=== PATIENT | male | born 1985 | race Asian ===

== ENCOUNTER 2018-10-02 15:13 | Emergency (ER) | payer OTHER, SELFPAY ==
[2018-10-02 15:28] VITALS: BP 138/93; PULSE 75; RESP 20; TEMP 36.6; O2SAT 99; BMI 26.9
--- NOTE | 2018-10-02 15:35 | DI.CT.S_ITS ---
PROCEDURE: CT HEAD/BRAIN WO CON INDICATIONS: headache after heavy lifting TECHNIQUE: Noncontrast 4.5 mm thick angled axial sections acquired from the foramen magnum to the vertex, with coronal and sagittal reformats. For radiation dose reduction, the following was used: automated exposure control, adjustment of mA and/or kV according to patient size. COMPARISON: None. FINDINGS: Image quality: Excellent. CSF spaces: Basal cisterns are patent. No extra-axial fluid collections. Ventricles are normal in size and shape. Brain: No midline shift. No intracranial masses or hemorrhage. Humphries-white matter interface is normal. Skull and face: Calvarium and visualized facial bones are intact, without suspicious lesions. Sinuses: Visualized sinuses and mastoids are clear. IMPRESSION: Normal examination. Source of current symptoms is not seen. Dictated by: Faustino Solano M.D. on 10/02/2018 at 15:50 Approved by: Faustino Solano M.D. on 10/02/2018 at 15:50
--- NOTE | 2018-10-02 18:35 | PC.NURSE ---
Called to come back to room. Poss left as was seen by security and coming into ED while door was open
--- NOTE | 2018-10-02 19:12 | ED_ITS ---
HPI - Headache General Chief Complaint: Headache Stated Complaint: back of head hurts, headache Time Seen by Provider: 10/02/18 18:38 Source: patient and family Mode of arrival: ambulatory Limitations: no limitations History of Present Illness HPI Narrative: 33-year-old male, nonsmoker, otherwise healthy presents with significant other and a chief complaint of gradually improving headache over the past 2 weeks. His pain started while due an incline bench press 2 weeks ago and at that time was sudden in onset. He denies any other neurologic symptoms such as blurred vision, trouble with speech or focal findings. He denies any provocation or palliation of his pain but states that over the past 2 weeks it has greatly improved. It is still slightly present but not overbearing. He presented to the walk-in clinic and was sent here for further evaluation. He denies use of blood thinners, alcohol or street drugs MD Complaint: headache Onset (ago): week(s) Onset description: sudden Location: occipital Severity: moderate Quality: aching and throbbing Relieving factors: nothing Exacerbating factors: none Context: occurred with exertion/activity Treatments prior to arrival: none Related Data Previous Rx's Medication Instructions Recorded ketorolac 10 mg PO Q6H PRN #14 tab 10/02/18 Review of Systems Review of Systems All systems reviewed & are unremarkable except as noted in HPI and below Constitutional Denies chills, Denies fever(s), Reports headache(s), Denies lethargy and Denies weakness Eyes Denies change in vision, Denies eye discharge, Denies irritation and Denies loss of vision ENT Ears, Nose, Mouth, and Throat: Denies change in voice, Reports headache(s), Denies neck pain and Denies sore throat Cardiovascular Denies chest pain, Denies irregular heart rhythm, Denies lightheadedness, Denies palpitations, Denies dyspnea, Denies dyspnea on exertion and Denies orthopnea Respiratory Denies cough, Denies dyspnea, Denies dyspnea on exertion and Denies wheezing Gastrointestinal Gastrointestinal: Denies abdominal pain, Denies change in bowel habits, Denies diarrhea, Denies nausea and Denies vomiting Genitourinary Denies hematuria, Denies flank pain, Denies urinary incontinence and Denies urinary urgency Musculoskeletal Denies neck pain Integumentary/Breasts Denies pruritus, Denies erythema, Denies rash and Denies wounds Neurologic Denies confusion, Reports headache(s), Denies loss of vision and Denies weakness Psychiatric Denies anxiety, Denies confusion, Denies depression, Denies homicidal ideation and Denies suicidal ideation Endocrine Denies palpitations Hematologic/Lymphatic Denies easy bruising Allergic/Immunologic Denies wheezing [facility] Social History Smoking Status: Never smoker Exam Narrative Exam Narrative: GENERAL: This is a well-nourished, well-developed patient, in mild distress. HEAD: Atraumatic. Normocephalic. No temporal or scalp tenderness. EYES: Pupils equal round and reactive. Extraocular motions intact. No scleral icterus. No injection or drainage. ENT: Nose without bleeding, purulent drainage or septal hematoma. Throat without erythema, tonsillar hypertrophy or exudate. Uvula midline. Airway patent. NECK: Trachea midline. No JVD or lymphadenopathy. Supple, nontender, no meningeal signs. CARDIOVASCULAR: Regular rate and rhythm without murmurs, gallops, or rubs. RESPIRATORY: Clear to auscultation. Breath sounds equal bilaterally. No wheezes , rales, or rhonchi. GASTROINTESTINAL: Abdomen soft, non-tender, nondistended. No hepato-splenomegaly , or palpable masses. No guarding. EXTREMITIES: No clubbing, cyanosis, or edema. No joint tenderness, effusion, or edema noted. BACK: Nontender without deformity or crepitance. No flank tenderness. NEURO: AOx3. SKIN: No rash or erythema. NIH Stroke Scale 1a. LOC: Patient is alert and keenly responsive (0) 1b. LOC Questions: Patient answers both LOC questions accurately (0) 1c. LOC Commands: Patient performs both tasks correctly (0) 2. Best Gaze: Normal (0) 3. Visual: No visual loss (0) 4. Facial palsy: Normal symmetrical movements (0) 5. Motor arm: No drift (0) 6. Motor leg: No drift (0) 7. Limb ataxia: Absent (0) 8. Sensory: Normal (0) 9. Best language: No aphasia; normal (0) 10. Dysarthria: Normal (0) 11. Extinction and inattention: No abnormality (0) NIHSS: 0 Initial Vital Signs Initial Vital Signs: Vital Signs Temperature 97.8 F 10/02/18 15:28 Pulse Rate 75 10/02/18 15:28 Respiratory Rate 20 10/02/18 15:28 Blood Pressure 138/93 H 10/02/18 15:28 Pulse Oximetry 99 10/02/18 15:28 Course Orders Ordered: ED Orders 10/02/18 15:35 CT head/brain wo con Stat Reevaluation(s) Reevaluation #1: Patient refuses Toradol IM, stating he does not feel that he needs a shot of medication Vital Signs - 8 hr 10/02/18 19:35 Pulse Rate 90 Respiratory Rate 17 Blood Pressure 133/81 Pulse Oximetry 97 [facility] - Headache Imaging Data CT scan - head: Radiologist's impression: View Report History [address] [address] [address] Scan Report Signed Patient: Dez Lazra MR#: [id number] : 1985 Acct:[id number] Age/Sex: 33 / M Date of Service: 10/02/18 Loc: ED Accession Number: [id number] Procedure: CT head/brain wo con Ordering Provider: Elysia Juarez D.O. PROCEDURE: CT HEAD/BRAIN WO CON INDICATIONS: headache after heavy lifting TECHNIQUE: Noncontrast 4.5 mm thick angled axial sections acquired from the foramen magnum to the vertex, with coronal and sagittal reformats. For radiation dose reduction, the following was used: automated exposure control, adjustment of mA and/or kV according to patient size. COMPARISON: None. FINDINGS: Image quality: Excellent. CSF spaces: Basal cisterns are patent. No extra-axial fluid collections. Ventricles are normal in size and shape. Brain: No midline shift. No intracranial masses or hemorrhage. Humphries-white matter interface is normal. Skull and face: Calvarium and visualized facial bones are intact, without suspicious lesions. Sinuses: Visualized sinuses and mastoids are clear. IMPRESSION: Normal examination. Source of current symptoms is not seen. Dictated by: Faustino Solano M.D. on 10/02/2018 at 15:50 Approved by: Faustino Solano M.D. on 10/02/2018 at 15:50 [facility] Narrative Medical decision making narrative: Healthy 33-year-old male presents with 2 week gradually improving headache. CT is unremarkable. Physical exam is very reassuring. Patient offered IM Toradol but refused. Return precautions given to patient and he expresses verbal understanding Discharge Plan Departure Patient Disposition: Home Clinical Impression: Headache Discharge Date/Time: 10/02/18 19:36 Interventions: ED Discharge Assessment Last Done: 10/02/18 19:35 Instructions: DI for Headache Activity Restrictions/Additional Instructions: *You have been diagnosed with [acute headache ] *What to do: *Take medications as directed: Prescription has written or the combination of Tylenol and Motrin. Do not take Motrin with the prescription *Follow up with your primary care provider in 2-3 days, call for an appointment. Let them know you were seen in the Emergency Department and that we ask that you be seen in follow up *Return to ER if you should have any new, worsening or concerning symptoms , such as [worsening pain, vision trouble, difficulty with speech or other bothersome symptoms ] Prescriptions: New ketorolac 10 mg tablet 10 mg PO Q6H PRN (Reason: pain) Qty: 14 RF: 0
[2018-10-02 19:35] VITALS: BP 133/81; PULSE 90; RESP 17; O2SAT 97
== END 2018-10-02 19:36 | disposition home or self-care (01) ==
PROVIDERS: Emergency Provider Emergency Medicine
DX: R51 Headache (principal)
CPT/HCPCS: 70450; 99282; 99284